=== PATIENT | male | born 1995 | race Caucasian/White ===

== ENCOUNTER 2019-06-01 09:26 | Emergency (ER) | payer MEDICAID ==
[2019-06-01 09:34] VITALS: BP 154/87
--- NOTE | 2019-06-01 10:11 | ER Document Report ---
HPI - HPI Time Seen by Provider: 06/01/19 10:00 Pain Level: 2 Notes: Patient is a 24-year-old male who presents complaining of an area of swelling to his anterior proximal tibia that is been present for 2 years. Patient states that on occasion he will develop soreness in that area and had an exacerbation of that soreness when his child bumped into it today. Patient states that he is never noticed any redness or purulence from it. Patient states that on occasion will fluctuate in size. Denies drug allergies. He has not had this evaluated before. No other concerns or complaints. Denies any headache, fever, URI, sore throat, chest pain, palpitations, syncope, cough, shortness of breath, wheeze, dyspnea, abdominal pain, nausea/vomiting/diarrhea, urinary retention, dysuria, hematuria, loss of control of bowel or bladder, numbness/tingling, muscle paralysis/weakness, or rash. - ROS Systems Reviewed and Negative: Yes All other systems reviewed and negative Past Medical History - Social History Smoking Status: Unknown if Ever Smoked Family History: Reviewed & Not Pertinent Vertical Provider Document - CONSTITUTIONAL Agree With Documented VS: Yes Notes: PHYSICAL EXAMINATION: GENERAL: Well-appearing, well-nourished and in no acute distress. LUNGS: Breath sounds clear to auscultation bilaterally and equal. No wheezes rales or rhonchi. HEART: Regular rate and rhythm without murmurs, rubs, gallops. Musculoskeletal: Lt knee: No obvious swelling, ecchymosis, effusion, or deformity. FROM to passive/active and flexion >90 w/o difficulty or tenderness. Strength 5+/5. N/V intact distal. No bony tenderness. Ligamentous grossly stable, limited exam with larger leg size. Napoleon grossly negative. Patellar grind negative. No calf tenderness. There is a noted spongy textured, moveable, mass/cyst to the proximal tibia (not the tibial tuberosity) that has mild tenderness w/o any erythema, warmth, streaks, or discharge. The area feels consistent with a lipoma. No fluctuance or induration. Extremities: No cyanosis, clubbing, or edema b/l. Peripheral pulses 2+. Capillary refill less than 3 seconds. Purnima neg b/l. NEUROLOGICAL: Normal speech, normal gait. Normal sensory, motor exams PSYCH: Normal mood, normal affect. SKIN: see above. - INFECTION CONTROL TRAVEL OUTSIDE OF THE [place] IN LAST 30 DAYS: No Course - Re-evaluation Re-evalutation: 06/01/19 10:14 Patient is an afebrile, well-hydrated, 24-year-old male who presents to the ED with a suspected lipoma to the left lower leg anteriorly. Pt has had this present for 2 years. Vitals are acceptable without any significant tachycardia, tachypnea, or hypoxia. PE is otherwise unremarkable for any neurovascular compromise, obvious tendon/ligament rupture, obvious fracture/dislocation, septic joint, DVT. Patient declined any Tylenol or ice. Patient is nontoxic- appearing. Patient is able to ambulate and weight-bear. No other labs or pola ging warranted at this time based on H&P. Conservative measures otherwise for symptoms. Recheck with your PCM in 3-5 days. Consider consult orthopedics. Return to the ED with any worsening/concerning symptoms otherwise as reviewed in discharge. Patient is in agreement. - Vital Signs Vital signs: Temp Pulse Resp BP Pulse Ox 97.8 F 77 16 154/87 H 98 06/01/19 09:33 06/01/19 09:33 06/01/19 09:33 06/01/19 09:33 06/01/19 09:33 Discharge - Discharge Clinical Impression: Lipoma of left lower extremity Condition: Stable Disposition: HOME, SELF-CARE Additional Instructions: Rest, Ice, Compression, Elevation Tylenol/ibuprofen as needed Light stretches daily Strength exercises as able Moist heat and massage may help F/u with your PCP in 3-5 days for a recheck Schedule appointment with orthopedics for further evaluation and management Return to the ED with any worsening symptoms and/or development of fever, headache, chest pain, palpitations, syncope, shortness of breath, trouble b reathing, abdominal pain, n/v/d, muscle weakness/paralysis, numbness/tingling, swelling, redness, or other worsening symptoms that are concerning to you. Forms: Elevated Blood Pressure, Return to Work Referrals: [facility] ([facility] [Provider Group] - Follow up as needed MALI GALINDO MD [ACTIVE PROVISIONAL STAFF] - Follow up as needed
== END 2019-06-01 10:15 | disposition home or self-care (01) ==
LOC: ER 09:26
DX: D17.24 Benign lipomatous neoplasm of skin and subcutaneous tissue of left leg (principal)
CPT/HCPCS: 99283